=== PATIENT | female | born 2000 ===

== ENCOUNTER 2022-09-28 13:13 | Outpatient (CLI) | payer MEDICAID, SELFPAY | END 2022-09-28 13:14 | disposition home or self-care (01) | PROVIDERS: PCP Family Medicine; Visit Provider Family Medicine | DX: Z01.419 Encounter for gynecological examination (general) (routine) without abnormal findings (principal); Z13.1 Encounter for screening for diabetes mellitus; Z13.6 Encounter for screening for cardiovascular disorders; Z11.3 Encounter for screening for infections with a predominantly sexual mode of transmission | CPT/HCPCS: 80061; 82947; 87491; 87591 ==

== ENCOUNTER 2022-10-13 08:59 | Outpatient (CLI) | payer MEDICAID, SELFPAY ==
[2022-10-13 12:39] LABS: Chlamydia DNA Amplified* NOT DETECTED (No Detected); GC DNA Amplified* NOT DETECTED (No Detected)
== END 2022-10-13 09:00 | disposition home or self-care (01) ==
PROVIDERS: PCP Family Medicine; Visit Provider Physician Assistant
DX: Z11.3 Encounter for screening for infections with a predominantly sexual mode of transmission (principal)
CPT/HCPCS: 87491; 87591

== ENCOUNTER 2023-02-13 13:22 | Emergency (ER) | payer MEDICAID, SELFPAY ==
[2023-02-13 13:44] VITALS: BP 108/71; PULSE 91; RESP 16; TEMP 36.4; O2SAT 98; BMI 25.0
--- NOTE | 2023-02-13 14:30 | ED_ITS ---
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 She has tried some magnesium and Tylenol without relief. She does have a history of migraine headaches and usually they will respond to this. She last tried Tylenol at 2:00 a.m. today. She has had no fevers, no trauma. She feels the headache throughout her whole head, goes into the back of her head goes to the front of her head up by her nose and behind her eyes. She has felt nausea with it but has had no vomiting. No abdominal pain. No other respiratory illnesses with this, specifically no sore throat or otalgia or nasal congestion or cough. She feels like her head is pounding. This is a more severe migraine headache for her. She really has not eaten much today due to the headache and the nausea from it. She has an IUD in place, knows it is good for 10 years, likely ParaGard but will confirm in her records. elicited complaint: headache and migraine Related Data Home Medications Medication Instructions Recorded Confirmed iron 02/13/23 Allergies Allergy/AdvReac Type Severity Reaction Status Date / Time No Known Allergies Allergy Unverified 10/13/22 07:46 Review of Systems Status of ROS: Reports: 6 or more systems reviewed and unremarkable except as noted in History and below [facility] Medical History Severe anxiety (03/2021) ?F41.9 - Anxiety disorder, unspecified (ICD-10) Posttraumatic stress disorder ?F43.10 - Post-traumatic stress disorder, unspecified (ICD-10) depression (06/2021) ?F53.0 - depression (ICD-10) Major depressive disorder ?F32.9 - Major depressive disorder, single episode, unspecified (ICD-10) Generalized anxiety disorder with panic attacks ?F41.1 - Generalized anxiety disorder (ICD-10) ?F41.0 - Panic disorder [episodic paroxysmal anxiety] (ICD-10) Surgical History History of appendectomy (06/2022) ?Z90.49 - Acquired absence of other specified parts of digestive tract (ICD- 10) Normal spontaneous vaginal delivery (06/08/21) ?O80 - Encounter for full-term uncomplicated delivery (ICD-10) Family History Maternal Grandfather Diabetes Aunt Diabetes Mother Fatty liver disease, nonalcoholic Social History Narrative: Single, has significant other, , 1 child Nonsmoker Does not drink alcohol Exercise 2-3 times per week : walking Smoking Status: Never smoker Little interest or pleasure in doing things: several days Feeling down, depressed, or hopeless: several days Exam Const: Vital Signs, click to edit/add: Vital Signs - 24 hr 02/13/23 13:44 Temperature 97.5 F L Pulse Rate [Pulse Oximeter] 91 Respiratory Rate 16 Blood Pressure [Ri ght Upper Arm] 108/71 Pulse Oximetry 98 Oxygen Delivery Me thod Room Air Very pleasant 22-year-old female that is alert interactive no apparent distress. Speech is normal. Able to speak in complete sentences. Pupils equal round reactive, sclerae are clear. TMs canals normal. Symmetrical facial function. Oropharynx are mucosa, no exudates erythema. Neck is supple, no cervical adenopathy, no thyromegaly masses or nodules. Lungs are clear, good air entry, no wheezing or crackles. CV regular rate and rhythm no murmur, normal S1 and S2. Abdomen is soft nontender nondistended. Gait was normal and she was ambulatory into the ED of her own accord. Strength is 5 5 and symmetric no tremors noted no focal neurologic deficits noted. Documenting provider has reviewed patient's vital signs: yes Course Course Hospital Course: Discussed with patient that this certainly sounds like a migraine headache but is just more severe for her. We will place an IV, do a L of normal saline, 10 mg Reglan, 15 mg IV Toradol and 25 mg IV Benadryl. I will do CBC and basic metabolic panel just ensure no electrolytes abnormality/anemia for her. She looks quite well, nothing in her history to suggest any red flags, do not believe she needs any neuro imaging at this time. Reevaluation(s) Time of Reevaluation #1: 17:32 Reevaluation #1: Patient is feeling better from the headache, tired from the medicines which we reviewed is normal. Did review with her the anemia. She does take iron, does note heavy menstrual flow. Will have her continue on iron, try to eat iron rich foods, have her anemia followed up in clinic within the next month. Vital Signs Vital signs: Initial Vital Signs Temperature 97.5 F L 02/13/23 13:44 Temperature Source Temporal Artery Scan 02/13/23 13:44 Pulse Rate 91 02/13/23 13:44 Respiratory Rate 16 02/13/23 13:44 Blood Pressure 108/71 02/13/23 13:44 Blood Pressure Mean 83 02/13/23 13:44 Blood Pressure Position Sitting 02/13/23 13:44 Pulse Oximetry 98 02/13/23 13:44 Oxygen Delivery Method Room Air 02/13/23 13:44 Vital Signs Temperature 97.5 F L 02/13/23 13:44 Pulse Rate 91 02/13/23 13:44 Respiratory Rate 16 02/13/23 13:44 Blood Pressure 108/71 02/13/23 13:44 Pulse Oximetry 98 02/13/23 13:44 Oxygen Delivery Method Room Air 02/13/23 13:44 Temperature 97.5 F L 02/13/23 13:44 Pulse Rate 91 02/13/23 13:44 Respiratory Rate 16 02/13/23 13:44 Blood Pressure 108/71 02/13/23 13:44 Pulse Oximetry 98 02/13/23 13:44 Oxygen Delivery Method Room Air 02/13/23 13:44 MDM - Headache Lab Data Attestation: I reviewed the patient's lab results. Labs: Lab Results 02/13/23 Range/Units 15:23 WBC 5.26 (4.50-11.00) K/uL RBC 4.10 (4.00-5.20) m/uL Hgb 10.8 L (12.0-16.0) gm/dL Hct 34.3 (33.0-51.0) % MCV 84 (80-100) fL MCH 26 (26-34) pg MCHC 32 (32-36) gm/dL RDW Coeff of Lon 13.4 (11.5-15.5) % Plt Count 277 (140-440) K/uL Neut % (Auto) 52.7 (42.0-72.0) % Lymph % (Auto) 35.9 (20-44) % [place] % (Auto) 10.8 (0.0-11.0) % Eos % (Auto) 0.2 (0.0-7.0) % Baso % (Auto) 0.2 (0.0-3.0) % Neut # (Auto) 2.77 (1.7-7.0) K/uL Lymph # (Auto) 1.89 (0.90-2.90) K/uL [place] # (Auto) 0.60 (0.00-0.90) K/UL Eos # (Auto) 0.01 (0.00-0.50) K/uL Baso # (Auto) 0.01 (0.00-0.30) K/uL Abs Immat Gran (auto) 0.01 (0.00-0.30) K/uL Imm/Tot Granulo (auto) 0.2 % Sodium 139 (135-149) mmol/L Potassium 3.5 L (3.6-5.1) mmol/L Chloride 105 (96-114) mmol/L Carbon Dioxide 23 (20-32) mmol/L Anion Gap 11 (7-15) mEq/L BUN 13 (5-24) mg/dL Creatinine 0.6 (0.5-1.5) mg/dL Estimated Creat Clear 122.69 Estimated GFR 131 ml/min Glucose 87 (60-115) mg/dL Calcium 9.1 (8.4-10.6) mg/dL Critical Care Time Critical Care Time Critical Care Time: No Discharge Plan Discharge Clinical Impression: Migraine, Anemia Patient Disposition: Home, Self-Care Condition: Stable Instructions: Migraine Headache (ED), Iron Rich Diet (ED), Anemia (ED) Additional Instructions: Need you to go home and rest, recommend taking a 1000 mg of Tylenol tonight before bed. You need did drink plenty of fluids help stay hydrated, this can help decrease migraine headaches. Do recommend staying on the iron supplement, follow up in clinic within the next month for recheck of your anemia. Review handout in try to eat iron rich foods as well. The ParaGard IUD can increase menstrual blood flow contributing to anemia. Can talk to your primary care provider about this further if you have ongoing issues with anemia. Activity Level: Activity as Tolerated Prescriptions: No Action iron Follow Up/Referrals: Summer Bogres MD [Primary Care Provider] - Stand Alone Forms: [employer] Info Instructions
[2023-02-13] MEDS: diphenhydrAMINE 50 MG/ML inj 25 MG IVP (15:24)
[2023-02-13] MEDS: METOCLOPRAMIDE HCL 10 MG in 0.9 % SODIUM CHLORIDE 100 ml 100 ML 306 MG IVPB (15:24)
[2023-02-13] MEDS: 0.9 % SODIUM CHLORIDE 1000 ml 1,000 ML IV (15:24)
[2023-02-13] MEDS: KETOROLAC 15 MG/ML inj IVP (15:24)
[2023-02-13 15:29] LABS: Basophils Absolute Auto 0.01 K/uL (0.00-0.30); Basophils Percent Auto 0.2 % (0.0-3.0); Eosinophils Absolute Auto 0.01 K/uL (0.00-0.50); Eosinophils Percent Auto 0.2 % (0.0-7.0); Hematocrit 34.3 % (33.0-51.0); Hemoglobin* 10.8 gm/dL (12.0-16.0); Immature Granulocytes Abs Auto 0.01 K/uL (0.00-0.30); Immature Granulocytes Pct Auto 0.2 %; Lymphocytes Absolute Auto 1.89 K/uL (0.90-2.90); Lymphocytes Percent Auto 35.9 % (20-44); Mean Corpuscular HGB Conc 32 gm/dL (32-36); Mean Corpuscular Hemoglobin 26 pg (26-34); Mean Corpuscular Volume 84 fL (80-100); Monocytes Percent Auto 10.8 % (0.0-11.0); Neutrophils Absolute Auto 2.77 K/uL (1.7-7.0); Neutrophils Percent Auto 52.7 % (42.0-72.0); Platelet Count* 277 K/uL (140-440); RDW Coefficient of Variation % 13.4 % (11.5-15.5); White Blood Count* 5.26 K/uL (4.50-11.00)
[2023-02-13 15:32] LABS: Slide Review Reflex No
[2023-02-13 15:41] LABS: Chloride* 105 mmol/L (96-114); Potassium* 3.5 mmol/L (3.6-5.1); Sodium* 139 mmol/L (135-149)
[2023-02-13 15:43] LABS: Creatinine* 0.6 mg/dL (0.5-1.5); Est. Creatinine Clearance* 122.69; Estimated Glomerular Filt Rate 131 ml/min
[2023-02-13 15:44] LABS: Anion Gap 11 mEq/L (7-15); Blood Urea Nitrogen* 13 mg/dL (5-24); Calcium* 9.1 mg/dL (8.4-10.6); Carbon Dioxide* 23 mmol/L (20-32); Glucose* 87 mg/dL (60-115)
== END 2023-02-13 17:50 | disposition home or self-care (01) ==
PROVIDERS: Emergency Provider Family Medicine; PCP Family Medicine
DX: G43.909 Migraine, unspecified, not intractable, without status migrainosus (principal); D64.9 Anemia, unspecified
CPT/HCPCS: 36415; 80048; 85025; 96365; 96375; 99284; J1200; J1885; J2765; J7030

== ENCOUNTER 2023-02-15 18:16 | Emergency (ER) | payer MEDICAID, SELFPAY ==
[2023-02-15 18:28] VITALS: BP 114/65; PULSE 103; RESP 16; TEMP 36.4; O2SAT 98; BMI 23.0
--- NOTE | 2023-02-15 18:55 | CRLHL7_ITS ---
For Patients: As a result of the Century Cures Act, medical imaging exams and procedure reports are released immediately into your electronic medical record. You may view this report before your referring provider. If you have questions, please contact your health care provider. INDICATION: Headache. TECHNIQUE: Noncontrast CT images acquired through the brain. COMPARISON: None. FINDINGS: The ventricles and sulci are within normal limits for patient age. No mass effect or midline shift. The fuentes-white differentiation is maintained. No acute intracranial hemorrhage or pathologic extra-axial fluid collection. The globes are symmetric. The calvarium is intact. Mild opacification of the left ethmoid air cells. The mastoid air cells are clear. IMPRESSION: No acute intracranial hemorrhage or mass effect. Please note that all CT scans at this facility use dose modulation, iterative reconstruction, and/or weight-based dosing when appropriate to reduce radiation dose to as low as reasonably achievable. Dictated by Broderick Omalley MD @ 02/15/2023 8:44:21 PM (Electronically Signed)
--- NOTE | 2023-02-15 19:08 | ED.GENADULT ---
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 She has a history of anxiety, anemia, migraines. She states she has been here 2 days ago for similar symptoms. She states she has history of migraines but they have never lasted this long she says this 1 feels worse than normal. She denies any traumatic injuries. Patient states symptoms felt better after the medications she got 2 days ago pending quickly came back when she got home. She is admitting to some lightheadedness and dizziness earlier in the day was not having any symptoms right now. Denies fevers, chills, chest pain, shortness of breath, abdominal pain, diarrhea, constipation, weakness, numbness. She does states she is concerned she could be is a some brownish vaginal discharge. This was noted 2 days ago also in the note. She does mid she has her menstrual period 2 weeks prior. Related Data Home Medications Medication Instructions Recorded Confirmed iron 02/13/23 Previous Rx's Medication Instructions Recorded ondansetron 4 mg disintegrating 4 mg PO Q6H #20 tabs 02/15/23 tablet Allergies Allergy/AdvReac Type Severity Reaction Status Date / Time No Known Allergies Allergy Unverified 10/13/22 07:46 Review of Systems Status of ROS: Reports: 10 or more systems reviewed and unremarkable except as noted in History and below PFSH PFS Medical History Severe anxiety (03/2021) ?F41.9 - Anxiety disorder, unspecified (ICD-10) Posttraumatic stress disorder ?F43.10 - Post-traumatic stress disorder, unspecified (ICD-10) depression (06/2021) ?F53.0 - depression (ICD-10) Major depressive disorder ?F32.9 - Major depressive disorder, single episode, unspecified (ICD-10) Generalized anxiety disorder with panic attacks ?F41.1 - Generalized anxiety disorder (ICD-10) ?F41.0 - Panic disorder [episodic paroxysmal anxiety] (ICD-10) Surgical History History of appendectomy (06/2022) ?Z90.49 - Acquired absence of other specified parts of digestive tract (ICD-10) Normal spontaneous vaginal delivery (06/08/21) ?O80 - Encounter for full-term uncomplicated delivery (ICD-10) Family History Maternal Grandfather Diabetes Aunt Diabetes Mother Fatty liver disease, nonalcoholic Social History Narrative: Single, has significant other, , 1 child Nonsmoker Does not drink alcohol Exercise 2-3 times per week : walking Smoking Status: Never smoker Non-prescribed substance use: denies use Little interest or pleasure in doing things: several days Feeling down, depressed, or hopeless: several days Exam Narrative: Exam Narrative: Const: Well-nourished, Well-developed, in mild distress Eyes: PERRL, no conjunctival injection, and symmetrical lids ENMT: Atraumatic external nose and ears. Moist mucous membranes. Neck: Symmetric, trachea midline, No thyromegaly. CVS: RRR, No murmurs or gallops. Peripheral pulses 2+ and equal in all extremities RESP: Unlabored respiratory effort. Clear to auscultation bilaterally. GI: Nontender/Nondistended, No rebound or guarding. MSK:Extremities w/o deformity, Normal Active ROM Skin: Warm, Dry. No rashes or lesions. Neuro: Normal Muscle tone, No focal neurological deficits. Psych: Awake, Alert, & Oriented x3. Appropriate mood and affect. Const: Vital Signs, click to edit/add: Vital Signs - 24 hr 02/15/23 18:28 Temperature 97.6 F Pulse Rate [Right Pulse Oximeter] 103 H Respiratory Rate 16 Blood Pressure [Ri ght Upper Arm] 114/65 Pulse Oximetry 98 Oxygen Delivery Me thod Room Air Course Vital Signs Vital signs: Initial Vital Signs Temperature 97.6 F 02/15/23 18:28 Temperature Source Temporal Artery Scan 02/15/23 18:28 Pulse Rate 103 H 02/15/23 18:28 Respiratory Rate 16 02/15/23 18:28 Blood Pressure 114/65 02/15/23 18:28 Blood Pressure Mean 81 02/15/23 18:28 Blood Pressure Position Sitting 02/15/23 18:28 Pulse Oximetry 98 02/15/23 18:28 Oxygen Delivery Method Room Air 02/15/23 18:28 Vital Signs Temperature 97.6 F 02/15/23 18:28 Pulse Rate 103 H 02/15/23 18:28 Respiratory Rate 16 02/15/23 18:28 Blood Pressure 114/65 02/15/23 18:28 Pulse Oximetry 98 02/15/23 18:28 Oxygen Delivery Method Room Air 02/15/23 18:28 Temperature 97.6 F 02/15/23 18:28 Pulse Rate 103 H 02/15/23 18:28 Respiratory Rate 16 02/15/23 18:28 Blood Pressure 114/65 02/15/23 18:28 Pulse Oximetry 98 02/15/23 18:28 Oxygen Delivery Method Room Air 02/15/23 18:28 Medical Decision Making MDM Narrative Medical decision making narrative: Patient is a 22-year-old female presenting to the emergency department for a headache. Headache has been going on for the past for 5 days. She was seen 2 days ago for similar symptoms prefer was feeling overall at discharge for several came back question 1 home. Has had vomiting since he was discharged home is currently feeling nauseated. She states this headache is worse than her previous migraines. Considering she has come back to the same symptoms and states that this worse than previous ones we will order head CT. She will also be given a migraine cocktail. After the migraine cocktail she says his symptoms improved. She still has a headache but is not as bad. Her head CT is pending at this time. Patient signed out to Dr. gomez at the end of my Shift. Lab Data Labs: Lab Results 02/15/23 Range/Units 19:15 HCG, Qual Negative (Negative) Discharge Plan Discharge Clinical Impression: Migraine Qualifiers: Migraine type: unspecified Status migrainosus presence: without status migrainosus Intractability: not intractable Qualified Code(s): G43.909 - Migraine, unspecified, not intractable, without status migrainosus Patient Disposition: Home, Self-Care Condition: Stable Instructions: Migraine Headache (ED) Additional Instructions: Follow-up to primary care provider. Take ibuprofen and Tylenol for pain. Return for new or worsening symptoms. Soon she started getting nauseated take Zofran. Prescriptions: New ondansetron 4 mg tablet,disintegrating 4 mg PO Q6H Qty: 20 0RF No Action iron Follow Up/Referrals: Summer Borges MD [Primary Care Provider] - Stand Alone Forms: [email or web address] Info Instructions
[2023-02-15] MEDS: METOCLOPRAMIDE HCL 5 MG/ML INJ 10 MG IVP (19:23)
[2023-02-15] MEDS: LACTATED RINGERS 1000 ML 1,000 ML IV (19:23)
[2023-02-15] MEDS: KETOROLAC 15 MG/ML inj IVP (19:23)
[2023-02-15] MEDS: diphenhydrAMINE 50 MG/ML inj 25 MG IVP (19:23)
[2023-02-15 19:55] LABS: HCG Qualitative Serum* Negative (Negative)
[2023-02-15] MEDS: ACETAMINOPHEN 500 MG TABLET 1000 MG PO (20:44)
== END 2023-02-15 21:04 | disposition home or self-care (01) ==
PROVIDERS: Emergency Provider Student in an Organized Health Care Education/Training Program; PCP Family Medicine
DX: G43.909 Migraine, unspecified, not intractable, without status migrainosus (principal)
CPT/HCPCS: 36415; 70450; 84703; 96374; 96375; 99283; 99284; A9270; J1200; J1885; J2765; J7120

== ENCOUNTER 2023-07-25 11:33 | Emergency (ER) | payer MEDICAID, SELFPAY ==
[2023-07-25 12:27] VITALS: BP 101/62; PULSE 83; RESP 18; TEMP 37.2; O2SAT 98
[2023-07-25 13:04] LABS: Appearance Urine Clear (Clear); Bilirubin Urine Negative (Negative); Blood Urine 2+ (Negative); Color Urine Yellow (Yellow); Glucose Urine Negative (Negative); Ketones Urine Negative (Negative); Leukocyte Esterase Urine Trace (Negative); Nitrite Urine Negative (Negative); Protein Urine Negative (Negative); Urobilinogen Urine 0.2 (0.2-1.0)
[2023-07-25 13:48] VITALS: BP 107/77; PULSE 82; RESP 16; O2SAT 100
[2023-07-25 14:01] LABS: Bacteria Urine Few; Squamous Epithelial Cell Urine Few (None-Few); WBC Urine 0-2 (0-5)
[2023-07-25 15:05] LABS: Ur HCG Qualitative* Negative (Negative)
--- NOTE | 2023-07-25 15:11 | ED_ITS ---
HPI - Female Genitourinary General Date Seen: 07/25/23 Chief complaint: Urogenital Problems, Female Stated complaint: Skin-like vaginal secretions Time Seen by Provider: 07/25/23 14:20 Source: patient Mode of arrival: ambulatory Limitations: no limitations History of Present Illness HPI Narrative: Patient is a 22-year-old female presenting to the emergency department for dysuria and some discharge. She states she has nose dysuria for the past 1 or 2 days was states every time she urinates some clumps discharge will come out. She is also having some mild pelvic pain that she says feels like period cramps. States her menstrual period was 2-3 weeks ago. States she is sexually active and has an IUD for contraception. Has not been using condoms. Has not noticed the discharge other than when she urinates. Denies fevers, chills, nausea/vomiting, diarrhea, constipation. No other concerns noted at this time Related Data Home Medications Medication Instructions Recorded Confirmed iron 02/13/23 Previous Rx's Medication Instructions Recorded ondansetron 4 mg disintegrating 4 mg PO Q6H #20 tabs 02/15/23 tablet cephalexin 250 mg capsule 250 mg PO QID #20 caps 07/25/23 Allergies Allergy/AdvReac Type Severity Reaction Status Date / Time No Known Allergies Allergy Unverified 10/13/22 07:46 Review of Systems Status of ROS: Reports: 6 or more systems reviewed and unremarkable except as noted in History and below PFSH PFS Medical History Severe anxiety (03/2021) ?F41.9 - Anxiety disorder, unspecified (ICD-10) Posttraumatic stress disorder ?F43.10 - Post-traumatic stress disorder, unspecified (ICD-10) depression (06/2021) ?F53.0 - depression (ICD-10) Major depressive disorder ?F32.9 - Major depressive disorder, single episode, unspecified (ICD-10) Generalized anxiety disorder with panic attacks ?F41.1 - Generalized anxiety disorder (ICD-10) ?F41.0 - Panic disorder [episodic paroxysmal anxiety] (ICD-10) Surgical History History of appendectomy (06/2022) ?Z90.49 - Acquired absence of other specified parts of digestive tract (ICD- 10) Normal spontaneous vaginal delivery (06/08/21) ?O80 - Encounter for full-term uncomplicated delivery (ICD-10) Family History Maternal Grandfather Diabetes Aunt Diabetes Mother Fatty liver disease, nonalcoholic Social History Narrative: Single, has significant other, , 1 child Nonsmoker Does not drink alcohol Exercise 2-3 times per week : walking Smoking Status: Never smoker Non-prescribed substance use: denies use Little interest or pleasure in doing things: several days Feeling down, depressed, or hopeless: several days Exam Narrative: Exam Narrative: Const: Well-nourished, Well-developed, in mild distress Eyes: PERRL, no conjunctival injection, and symmetrical lids HENT: Atraumatic external nose and ears. Moist mucous membranes. GI: Mild suprapubic tenderness, Nondistended, No rebound or guarding. MSK:Extremities w/o deformity, Normal Active ROM Skin: Warm, Dry. No rashes or lesions. Neuro: Normal Muscle tone, No focal neurological deficits. Psych: Awake, Alert, & Oriented x3. Appropriate mood and affect. Const: Vital Signs, click to edit/add: Vital Signs - 24 hr 07/25/23 12:27 07/25/23 13:48 Temperature 98.9 F Pulse Rate [Pulse Oximeter] 83 82 Respiratory Rate 18 16 Blood Pressure [Ri ght Upper Arm] 101/62 107/77 Pulse Oximetry 98 100 Oxygen Delivery Me thod Room Air Room Air Course Vital Signs Vital signs: Initial Vital Signs Temperature 98.9 F 07/25/23 12:27 Temperature Source Temporal Artery Scan 07/25/23 12:27 Pulse Rate 83 07/25/23 12:27 Respiratory Rate 18 07/25/23 12:27 Blood Pressure 101/62 07/25/23 12:27 Blood Pressure Mean 75 07/25/23 12:27 Blood Pressure Position Sitting 07/25/23 12:27 Pulse Oximetry 98 07/25/23 12:27 Oxygen Delivery Method Room Air 07/25/23 12:27 Vital Signs Temperature 98.9 F 07/25/23 12:27 Pulse Rate 83 07/25/23 12:27 Respiratory Rate 18 07/25/23 12:27 Blood Pressure 101/62 07/25/23 12:27 Pulse Oximetry 98 07/25/23 12:27 Oxygen Delivery Method Room Air 07/25/23 12:27 Temperature 98.9 F 07/25/23 12:27 Pulse Rate 82 07/25/23 13:48 Respiratory Rate 16 07/25/23 13:48 Blood Pressure 107/77 07/25/23 13:48 Pulse Oximetry 100 07/25/23 13:48 Oxygen Delivery Method Room Air 07/25/23 13:48 MDM - Female Genitourinary MDM Narrative Medical decision making narrative: Patient is a 22-year-old female presenting for dysuria and vaginal discharge. Discharged only comes when she urinates. She is not using barrier protection and I do have some concern for STD. Gonorrhea chlamydia test ordered. Urinalysis ordered. Also were test. She is otherwise doing well stable vital signs and not believe imaging is necessary at this time. Urinalysis shows a mild UTI but considering her symptoms I will treated. She is not . Chlamydia and gonorrhea are negative. She will be discharged home antibiotics and she is agreeable to this plan Lab Data Labs: Lab Results 07/25/23 07/25/23 Range/Units 12:42 12:44 Urine Color Yellow (Yellow) Urine Appearance Clear (Clear) Urine pH 6.0 (5.0-8.5) Ur Specific [place] 1.020 (1.000-1.030) Urine Protein Negative (Negative) Urine Glucose (UA) Negative (Negative) Urine Ketones Negative (Negative) Urine Blood 2+ A (Negative) Urine Nitrite Negative (Negative) Urine Bilirubin Negative (Negative) Urine Urobilinogen 0.2 (0.2-1.0) Ur Leukocyte Esterase Trace A (Negative) Urine RBC 2-5 A (0-2) Urine WBC 0-2 (0-5) Ur Squamous Epith Cells Few (None-Few) Urine Bacteria Few A (None) Urine HCG, Qual Negative (Negative) C.trachomatis Ampl DNA Not Detected (No Detected) N.gonorrhoeae Ampl DNA Not Detected (No Detected) Discharge Plan Discharge Clinical Impression: Urinary tract infection Qualifiers: Urinary tract infection type: site unspecified Hematuria presence: without hematuria Qualified Code(s): N39.0 - Urinary tract infection, site not specified Patient Disposition: Home, Self-Care Condition: Stable Instructions: Urinary Tract Infection in Women (DC) Additional Instructions: Take the antibiotics as directed. Return to emergency department for new or worsening symptoms Prescriptions: New cephalexin 250 mg capsule 250 mg PO QID Qty: 20 0RF No Action ondansetron 4 mg tablet,disintegrating 4 mg PO Q6H Qty: 20 0RF iron Follow Up/Referrals: Summer Borges MD [Primary Care Provider] - Stand Alone Forms: [employer] Info Instructions
[2023-07-25 16:39] LABS: Chlamydia DNA Amplified* Not Detected (No Detected); GC DNA Amplified* Not Detected (No Detected)
== END 2023-07-25 17:20 | disposition home or self-care (01) ==
PROVIDERS: Emergency Provider Student in an Organized Health Care Education/Training Program; PCP Family Medicine
DX: N39.0 Urinary tract infection, site not specified (principal)
CPT/HCPCS: 81001; 81025; 87086; 87491; 87591; 99282; 99283

== ENCOUNTER 2024-03-13 14:33 | Outpatient (CLI) | payer OTHER, SELFPAY ==
[2024-03-13 23:41] LABS: Chlamydia DNA Amplified* NOT DETECTED (No Detected); GC DNA Amplified* NOT DETECTED (No Detected)
== END 2024-03-13 14:34 | disposition home or self-care (01) ==
LOC: NFLDUCREF 14:33
PROVIDERS: PCP Family Medicine; Visit Provider Nurse Practitioner
DX: N89.8 Other specified noninflammatory disorders of vagina (principal)
CPT/HCPCS: 87491; 87591

== ENCOUNTER 2024-07-03 15:21 | Outpatient (CLI) | payer OTHER, SELFPAY ==
[2024-07-03 21:06] LABS: Chlamydia DNA Amplified* NOT DETECTED (No Detected); GC DNA Amplified* NOT DETECTED (No Detected)
== END 2024-07-03 15:22 | disposition home or self-care (01) ==
PROVIDERS: PCP Family Medicine; Visit Provider Registered Nurse
DX: Z34.91 Encounter for supervision of normal pregnancy, unspecified, first trimester (principal); O20.9 Hemorrhage in early pregnancy, unspecified; O34.11 Maternal care for benign tumor of corpus uteri, first trimester; D25.2 Subserosal leiomyoma of uterus; Z3A.09 9 weeks gestation of pregnancy
CPT/HCPCS: 76817; 82728; 83020; 83021; 83540; 83550; 85660; 86592; 86703; 86704; 86706; 86762; 86787; 86803; 86850; 86900; 86901; 87086; 87340; 87491; 87591; T1013

== ENCOUNTER 2024-07-16 12:24 | Outpatient (CLI) | payer OTHER, MEDICAID, SELFPAY ==
[2024-07-16 14:57] LABS: Bacterial Vaginosis* Negative (Negative); Candida glab/krus NOT DETECTED (No Detected); Candida species NOT DETECTED (No Detected); Trichomonas vaginalis NOT DETECTED (No Detected)
== END 2024-07-16 12:25 | disposition home or self-care (01) ==
LOC: NFLDREF 12:24
PROVIDERS: PCP Family Medicine; Visit Provider Registered Nurse
DX: N89.8 Other specified noninflammatory disorders of vagina (principal)
CPT/HCPCS: 81513; 87481; 87661

== ENCOUNTER 2024-07-19 14:10 | Emergency (ER) | payer OTHER, MEDICAID, SELFPAY ==
[2024-07-19 14:40] VITALS: BP 95/56; PULSE 68; RESP 18; TEMP 36.9; O2SAT 99; BMI 23.7
--- NOTE | 2024-07-19 15:00 | ED.HA ---
HPI - Headache General Chief Complaint: Headache/Migraine Stated Complaint: 3 day headache, 11 weeks Time Seen by Provider: 07/19/24 14:50 History of Present Illness HPI Narrative: This 23-year-old female comes in reporting headache which started about 3 days ago. She states that she does have a history of headaches but this 1 is more persistent. Symptoms are similar in that it includes nausea with vomiting. She reports that she is 11 weeks . Related Data Home Medications ?Medication ?Instructions ?Recorded ?Confirmed docosahexaenoic acid 200 mg mg PO 07/03/24 07/16/24 capsule ( DHA) magnesium citrate 125 mg capsule 250 mg PO QDAY 07/03/24 07/16/24 Previous Rx's ?Medication ?Instructions ?Recorded ferrous sulfate 325 mg (65 mg 325 mg PO Q OTHER DAY #90 tabs 07/04/24 iron) tablet ondansetron 4 mg disintegrating 4 mg PO Q6-8H PRN nausea and 07/16/24 tablet vomiting #30 tabs Allergies Allergy/AdvReac Type Severity Reaction Status Date / Time No Known Allergies Allergy Verified 07/16/24 10:41 Review of Systems Status of ROS: Reports: 10 or more systems reviewed and unremarkable except as noted in History and below Narrative: Constitutional: No fevers, no weight gain or loss. Eyes: No discharge. No vision changes. HENT: No congestion, no sore throat, no ear pain. Cardiovascular: No chest pain, no palpitations. Respiratory: No shortness of breath, no wheezes, no cough. Gastrointestinal: No abdominal pain, no vomiting, no diarrhea. Genitourinary: No dysuria, no hematuria. Musculoskeletal: Normal range of motion. Skin: No rashes, no pruritis. Neurological: No dizziness, weakness, sensory change, speech change. Endo/Heme/Allergies: No bruising or bleeding. No polydipsia. Pysch: no suicidality, no anxiety, no insomnia. All other systems reviewed and are negative. [facility] Medical History (Updated 07/19/24 @ 15:02 by Alin Mccall MD) Iron deficiency anemia ?D50.9 - Iron deficiency anemia, unspecified (ICD-10) Encounter for IUD removal ?Z30.432 - Encounter for removal of intrauterine contraceptive device (ICD-10) Severe anxiety (03/2021) ?F41.9 - Anxiety disorder, unspecified (ICD-10) Posttraumatic stress disorder ?F43.10 - Post-traumatic stress disorder, unspecified (ICD-10) depression (06/2021) ?F53.0 - depression (ICD-10) Major depressive disorder ?F32.9 - Major depressive disorder, single episode, unspecified (ICD-10) Generalized anxiety disorder with panic attacks ?F41.1 - Generalized anxiety disorder (ICD-10) ?F41.0 - Panic disorder [episodic paroxysmal anxiety] (ICD-10) Surgical History History of appendectomy (06/2022) ?Z90.49 - Acquired absence of other specified parts of digestive tract (ICD-10) Normal spontaneous vaginal delivery (06/08/21) ?O80 - Encounter for full-term uncomplicated delivery (ICD-10) Family History Maternal Grandfather Diabetes Aunt Diabetes Mother Fatty liver disease, nonalcoholic Social History (Updated 07/03/24 @ 14:30 by Odalys Solano MA) Narrative: Single, has significant other, , 1 child Nonsmoker Does not drink alcohol Exercise 2-3 times per week : walking What is your current living situation?: I presently have a place to live Problems where you live: no known problems In the past 12 months, utilities in danger of being shut off: no In past 12 months, lack of transportation kept you from medical appts, meetings, work, or getting things needed for daily living: no In the past 12 mos, have been you worried that your food would run out before you had money to buy more?: never true In the past 12 mos, the food you bought just didn't last and you didn't have money to buy more?: never true Smoking Status: Never smoker How often do you have a drink containing alcohol: never AUDIT-C Alcohol total score: 0 Non-prescribed substance use: denies use How often does anyone, including family, friends and others, physically hurt you: never How often does anyone, including family, friends and others, insult or talk down to you: never How often does anyone, including family, friends and others, threaten you with harm: never How often does anyone, including family, friends and others, scream or curse at you: never Exam Narrative: Exam Narrative: Constitutional: Well-developed, well-nourished, no acute distress. HEENT: Normocephalic, atraumatic. Neck: Normal range of motion. Nontender. Supple. Heart: Regular. No murmurs. Normal rate. Intact distal pulses. Lungs: Clear to auscultation. No chest discomfort. No wheezes, rhonchi, or rales. Abdomen: Normal bowel sounds. Nontender. No rebound tenderness. Genitalia: Deferred. Back: No midline tenderness. Normal range of motion. Extremities: Normal range of motion. No injury. Skin: Intact. No rash. Warm. No erythema or pallor. Neurologic: No altered sensation. No weakness. Alert and oriented. Psychiatric: No suicidality. No anxiety or depression. No insomnia. Nursing notes and vitals signs are reviewed. Const: Vital Signs, click to edit/add: Vital Signs - 24 hr 07/19/24 14:40 Temperature 98.5 F Pulse Rate [Pulse Oximeter] 68 Respiratory Rate 18 Blood Pressure [Ri ght Upper Arm] 95/56 L Pulse Oximetry 99 Oxygen Delivery Me thod Room Air Course Vital Signs Vital signs: Initial Vital Signs Temperature 98.5 F 07/19/24 14:40 Temperature Source Temporal Artery Scan 07/19/24 14:40 Pulse Rate 68 07/19/24 14:40 Respiratory Rate 18 07/19/24 14:40 Blood Pressure 95/56 L 07/19/24 14:40 Blood Pressure Mean 69 L 07/19/24 14:40 Pulse Oximetry 99 07/19/24 14:40 Oxygen Delivery Method Room Air 07/19/24 14:40 Vital Signs Temperature 98.5 F 07/19/24 14:40 Pulse Rate 68 07/19/24 14:40 Respiratory Rate 18 07/19/24 14:40 Blood Pressure 95/56 L 07/19/24 14:40 Pulse Oximetry 99 07/19/24 14:40 Oxygen Delivery Method Room Air 07/19/24 14:40 Temperature 98.5 F 07/19/24 14:40 Pulse Rate 68 07/19/24 14:40 Respiratory Rate 18 07/19/24 14:40 Blood Pressure 95/56 L 07/19/24 14:40 Pulse Oximetry 99 07/19/24 14:40 Oxygen Delivery Method Room Air 07/19/24 14:40 Medications Administered Medications: Discontinued Medications Generic Name Dose Route Start Last Admin Trade Name Pankaj PRN Reason Stop Dose Admin Diphenhydramine HCl 25 mg 07/19/24 14:59 07/19/24 15:20 Diphenhydramine 50 Mg/Ml Inj IVP 07/19/24 15:00 25 mg ONCE ONE Administration Ketorolac Tromethamine 15 mg 07/19/24 14:59 07/19/24 15:26 Ketorolac 30 Mg/Ml Inj IVP 07/19/24 15:00 15 mg ONCE ONE Administration Ondansetron HCl 4 mg 07/19/24 14:59 07/19/24 15:22 Ondansetron 2 Mg/Ml Inj IVP 07/19/24 15:00 4 mg ONCE ONE Administration MDM - Headache MDM Narrative Medical decision making narrative: This patient is 11 weeks and comes in with migraine headache symptoms that are not adequately managed at home. An IV was established where she did receive Toradol 15 mg, Benadryl 25 mg, and Zofran 4 mg. This brought sufficient relief to her symptoms. She feels okay to return home. Discharge Plan Discharge Clinical Impression: Migraine Patient Disposition: Home, Self-Care Condition: Improved Additional Instructions: Use [id number] medicines as needed and directed. Follow up with MD as scheduled and needed. Return if worsening. Prescriptions: No Action DHA 200 mg capsule PO magnesium citrate 125 mg capsule 250 mg PO QDAY ondansetron 4 mg tablet,disintegrating 4 mg PO Q6-8H PRN (Reason: nausea and vomiting) Qty: 30 1RF ferrous sulfate 325 mg (65 mg iron) tablet 325 mg PO Q OTHER DAY Qty: 90 1RF Follow Up/Referrals: Summer Borges MD [Staff Physician] - Stand Alone Forms: [place] [employer] Info Instructions
[2024-07-19] MEDS: diphenhydrAMINE 50 MG/ML inj 25 MG IVP (15:20)
[2024-07-19] MEDS: ONDANSETRON 2 MG/ML inj 4 MG IVP (15:22)
[2024-07-19] MEDS: KETOROLAC 30 MG/ML inj 15 MG IVP (15:26)
[2024-07-19 16:23] VITALS: BP 96/61; PULSE 62; RESP 14
== END 2024-07-19 16:24 | disposition home or self-care (01) ==
PROVIDERS: Emergency Provider Emergency Medicine Emergency Medical Services
DX: G43.909 Migraine, unspecified, not intractable, without status migrainosus (principal); Z3A.11 11 weeks gestation of pregnancy
CPT/HCPCS: 96374; 96375; 99283; 99284; T1013; J1200; J1885; J2405

== ENCOUNTER 2024-07-28 17:07 | Emergency (ER) | payer OTHER, MEDICAID, SELFPAY ==
[2024-07-28 17:49] VITALS: BP 111/68; PULSE 67; RESP 16; TEMP 36.4; O2SAT 100; BMI 24.2
[2024-07-28] MEDS: OXYCODONE 5 MG TABLET PO (19:06)
--- NOTE | 2024-07-28 19:08 | ED.GENADULT ---
HPI - General Adult General Date Seen: 07/28/24 Chief complaint: Dental/Oral/Mouth Injury/Pain Stated complaint: Potential Molar infection (right side) Time Seen by Provider: 07/28/24 18:40 History of Present Illness HPI narrative: Patient is a 23-year-old young woman, primarily Arabic-speaking although she speaks a fair amount of Mongolian. We did use an cheese cutter for the history. She notes pain in the right molar, lower, ongoing for few days now but it is worse tonight. She actually has a dentist appointment tomorrow but says that it was too painful. She feels like there is some swelling on that side of her face and she has pain that radiates into her jaw and ear. No fevers. She is 12 weeks . Related Data Home Medications ?Medication ?Instructions ?Recorded ?Confirmed docosahexaenoic acid 200 mg mg PO 07/03/24 07/25/24 capsule ( DHA) magnesium citrate 125 mg capsule 250 mg PO QDAY 07/03/24 07/28/24 Previous Rx's ?Medication ?Instructions ?Recorded ferrous sulfate 325 mg (65 mg 325 mg PO Q OTHER DAY #90 tabs 07/04/24 iron) tablet ondansetron 4 mg disintegrating 4 mg PO Q6-8H PRN nausea and 07/16/24 tablet vomiting #30 tabs Allergies Allergy/AdvReac Type Severity Reaction Status Date / Time No Known Allergies Allergy Verified 07/28/24 17:59 Review of Systems Status of ROS: Reports: 6 or more systems reviewed and unremarkable except as noted in History and below [facility] Medical History (Updated 07/28/24 @ 19:01 by Kelly Santana MD) Iron deficiency anemia ?D50.9 - Iron deficiency anemia, unspecified (ICD-10) Encounter for IUD removal ?Z30.432 - Encounter for removal of intrauterine contraceptive device (ICD-10) Severe anxiety (03/2021) ?F41.9 - Anxiety disorder, unspecified (ICD-10) Posttraumatic stress disorder ?F43.10 - Post-traumatic stress disorder, unspecified (ICD-10) depression (06/2021) ?F53.0 - depression (ICD-10) Major depressive disorder ?F32.9 - Major depressive disorder, single episode, unspecified (ICD-10) Generalized anxiety disorder with panic attacks ?F41.1 - Generalized anxiety disorder (ICD-10) ?F41.0 - Panic disorder [episodic paroxysmal anxiety] (ICD-10) Surgical History History of appendectomy (06/2022) ?Z90.49 - Acquired absence of other specified parts of digestive tract (ICD-10) Normal spontaneous vaginal delivery (06/08/21) ?O80 - Encounter for full-term uncomplicated delivery (ICD-10) Family History Maternal Grandfather Diabetes Aunt Diabetes Mother Fatty liver disease, nonalcoholic Social History (Updated 07/03/24 @ 14:30 by Odalys Solano MA) Narrative: Single, has significant other, , 1 child Nonsmoker Does not drink alcohol Exercise 2-3 times per week : walking What is your current living situation?: I presently have a place to live Problems where you live: no known problems In the past 12 months, utilities in danger of being shut off: no In past 12 months, lack of transportation kept you from medical appts, meetings, work, or getting things needed for daily living: no In the past 12 mos, have been you worried that your food would run out before you had money to buy more?: never true In the past 12 mos, the food you bought just didn't last and you didn't have money to buy more?: never true Smoking Status: Never smoker How often do you have a drink containing alcohol: never AUDIT-C Alcohol total score: 0 Non-prescribed substance use: denies use How often does anyone, including family, friends and others, physically hurt you: never How often does anyone, including family, friends and others, insult or talk down to you: never How often does anyone, including family, friends and others, threaten you with harm: never How often does anyone, including family, friends and others, scream or curse at you: never Exam Narrative: Exam Narrative: Vital signs reviewed. She is afebrile. In general, alert, nontoxic young woman. She looks comfortable. Breathing easily. Eyes: Sclera clear. ENT: I do not see any facial swelling. No erythema or induration. No dental abscess identified. TMs normal. In neck: Supple without adenopathy. Const: Vital Signs, click to edit/add: Vital Signs - 24 hr 07/28/24 17:49 Temperature 97.5 F L Pulse Rate [Pulse Oximeter] 67 Respiratory Rate 16 Blood Pressure [Ri ght Upper Arm] 111/68 Pulse Oximetry 100 Oxygen Delivery Me thod Room Air Course Course ED Course: I do not see evidence of significant cellulitis or other infectious process involving the face or neck. I gave her a single oxycodone here, I have sent her home with a prescription for amoxicillin and stressed the importance of dental follow-up tomorrow. Return any time for worsening, if she does develop significant facial swelling or redness, fevers etcetera. Vital Signs Vital signs: Initial Vital Signs Temperature 97.5 F L 07/28/24 17:49 Temperature Source Temporal Artery Scan 07/28/24 17:49 Pulse Rate 67 07/28/24 17:49 Respiratory Rate 16 07/28/24 17:49 Blood Pressure 111/68 07/28/24 17:49 Blood Pressure Mean 82 07/28/24 17:49 Blood Pressure Position Sitting 07/28/24 17:49 Pulse Oximetry 100 07/28/24 17:49 Oxygen Delivery Method Room Air 07/28/24 17:49 Vital Signs Temperature 97.5 F L 07/28/24 17:49 Pulse Rate 67 07/28/24 17:49 Respiratory Rate 16 07/28/24 17:49 Blood Pressure 111/68 07/28/24 17:49 Pulse Oximetry 100 07/28/24 17:49 Oxygen Delivery Method Room Air 07/28/24 17:49 Temperature 97.5 F L 07/28/24 17:49 Pulse Rate 67 07/28/24 17:49 Respiratory Rate 16 07/28/24 17:49 Blood Pressure 111/68 07/28/24 17:49 Pulse Oximetry 100 07/28/24 17:49 Oxygen Delivery Method Room Air 07/28/24 17:49 Medications Administered Medications: Generic Name Dose Route Start Last Admin Trade Name Freq PRN Reason Stop Dose Admin Oxycodone HCl 5 mg 07/28/24 19:00 07/28/24 19:06 Oxycodone 5 Mg Tablet PO 07/28/24 19:01 5 mg ONCE ONE Administration Discharge Plan Discharge Clinical Impression: Toothache Patient Disposition: Home, Self-Care Condition: Stable Instructions: Toothache (ED) Additional Instructions: Follow-up tomorrow with the dentist as planned. Take the amoxicillin as prescribed. Tylenol 1000 mg up to 3 times a day as needed for pain. Ice may be helpful as well. If you notice significant facial swelling or redness, fever, or other significant worsening, return any time. Ma?claudia tendr? paloma beatriz de seguimiento con el dentista seg?n lo previsto. [place] la amoxicilina seg?n lo prescrito. Tylenol 1000 mg hasta 3 veces al d?a seg?n sea necesario para el dolor. El hielo tambi?n puede ser ?til. Si nota paloma hinchaz?n o enrojecimiento facial significativo, fiebre u otro empeoramiento significativo, vuelva en cualquier momento. Prescriptions: No Action DHA 200 mg capsule PO magnesium citrate 125 mg capsule 250 mg PO QDAY ondansetron 4 mg tablet,disintegrating 4 mg PO Q6-8H PRN (Reason: nausea and vomiting) Qty: 30 1RF ferrous sulfate 325 mg (65 mg iron) tablet 325 mg PO Q OTHER DAY Qty: 90 1RF Follow Up/Referrals: Provider,Not a Local [Primary Care Provider] - Stand Alone Forms: [employer] Info Instructions
== END 2024-07-28 19:14 | disposition home or self-care (01) ==
LOC: ED 19:13
PROVIDERS: Emergency Provider Emergency Medicine
DX: K08.89 Other specified disorders of teeth and supporting structures (principal)
CPT/HCPCS: 99283; A9270

== ENCOUNTER 2024-09-19 11:25 | Outpatient (CLI) | payer MEDICAID, SELFPAY ==
--- NOTE | 2024-09-19 11:30 | CRLHL7_ITS ---
For Patients: As a result of the Century Cures Act, medical imaging exams and procedure reports are released immediately into your electronic medical record. You may view this report before your referring provider. If you have questions, please contact your health care provider. OB ULTRASOUND GREATER THAN 14 WEEKS, 09/19/2024 CLINICAL HISTORY: anatomy screen. COMPARISON: 07/03/2024. TECHNIQUE: Real time fuentes scale imaging of the fetus was performed. Evaluate anatomy. Transabdominal. FINDINGS: LMP: 05/01/2024. JEISON by LMP: 02/05/2025. GA: 20 weeks 1 day. POSITION: Vertex. PLACENTA/CORD: Placenta Position: Posterior. Technique: TA. Placenta tip to internal OS: 5.6 cm. UMBILICAL CORD: 3 vessel cord. PLACENTAL INSERTION: Central AMNIOTIC FLUID: 4.1 cm SDP. CERVIX: Visualized. Technique: TA. Length of closed cervix: 3.6 cm. OBSERVED STRUCTURES: Calvarium/Spine: Cerebellum 2.1 cm, 21 weeks 2 days. Cisterna Magna 4.0 mm. Nuchal Fold 3.3 mm Lateral ventricle 7.2 mm CSP Midline Falx Choroid Plexus Spine Abdomen: Stomach Abd Cord Insert Urinary Bladder Kidneys Diaphragm Face: Nose/lips Orbital view Profile Limbs: Upper Extremities Lower Extremities Hands Feet Vascular: 4 Ch Heart LVOT RVOT 3 VV 3VTV BIOMETRY: BPD: 5.3 cm, 22 weeks 1 day. Greater than 97% HC: 19.1 cm, 21 weeks 2 days. 88.9% AC: 16.6 cm, 21 weeks 5 days. 87.7% FL: 3.6 cm, 21 weeks 3 days. 84.8% FL/AC: 21.75% RIDER/AC: 1.15. Heart Rate: 152 bpm. Age by this US: 21 weeks 4 days. JEISON by this US: 01/26/2025. EFW: 435.02 grams, 0 lb 15 oz. Percentile by JEISON: greater than 97% IMPRESSION: Single live intrauterine gestation. No gross anomalies visualized. Gestational age of 21 weeks 4 days. JEISON 01/26/2025. Estimated weight 435 grams which lies at greater than the 97th percentile. Lenore Augustine M.D. Diagnostic/Breast Radiologist [email or web address] Transcribed: 9:00 am DW/Dictated by: Lenore Augustine MD @ 09/20/2024 5:25:00 AM (Electronically Signed)
== END 2024-09-19 11:26 | disposition home or self-care (01) ==
LOC: US 11:31
PROVIDERS: Visit Provider Advanced Practice Midwife
DX: Z34.92 Encounter for supervision of normal pregnancy, unspecified, second trimester (principal); Z3A.21 21 weeks gestation of pregnancy
CPT/HCPCS: 76805; T1013

== ENCOUNTER 2024-10-26 14:35 | Outpatient (CLI) | payer MEDICAID, SELFPAY ==
[2024-10-26] VITALS (14 sets, daily range): BP systolic 103–139; BP diastolic 61–92; PULSE 84–164; RESP 16; TEMP 37; O2SAT 98–100
[2024-10-26 15:32] LABS: Appearance Urine Slightly Cloudy (Clear); Bilirubin Urine Negative (Negative); Blood Urine Negative (Negative); Color Urine Light yellow (Yellow); Glucose Urine Negative (Negative); Ketones Urine Negative (Negative); Leukocyte Esterase Urine 1+ (Negative); Nitrite Urine Negative (Negative); Protein Urine Negative (Negative); Specific Gravity Urine 1.015 (1.000-1.030); Urobilinogen Urine 0.2 (0.2-1.0)
[2024-10-26 15:49] LABS: Amorphous Sediment Urine Many; Bacteria Urine Few; RBC Urine 0-2 (0-2); WBC Urine 0-2 (0-5)
--- NOTE | 2024-10-26 16:45 | PC.OBNST ---
NST Note NST Note Start: 10/26/24 15:04 Freq: ONCE Status: Active Protocol: Document 10/26/24 16:44 ABP (Rec: 10/26/24 16:45 ABP [id number]) NST Note 2 Para (# of births) 1 EDC 02/05/25 Gestational Age In Weeks & Days 25 Weeks & 3 Days Patient Presented with Complaint(s) of Contractions/cramping,Pain Other Complaints Abdominal pain, red tinged fluid when wiping after voiding, dysuria Reactive Yes Appropriate for Gestational Age Yes BROOKE Conley, RN Date 10/26/24 Reactive Yes Appropriate for Gestational Age Yes BROOKE Nguyen RN Date 10/26/24 OB NST charge Yes Complete NST Note via Write Note Yes The provider's electronic signature indicates the NST is reactive/appropriate for gestational age. *Note to provider: If an addendum is required, open the patient's chart and click on the note under the Nurse/Allied Health tab.
== END 2024-10-26 16:15 | disposition home or self-care (01) ==
LOC: OB OUT 14:36 → OB 14:37
PROVIDERS: Visit Provider Advanced Practice Midwife
DX: O47.02 False labor before 37 completed weeks of gestation, second trimester (principal); O26.892 Other specified pregnancy related conditions, second trimester; R10.9 Unspecified abdominal pain; R30.0 Dysuria; Z3A.25 25 weeks gestation of pregnancy
CPT/HCPCS: 59025; 81001; 81003; 87086; G0463

== ENCOUNTER 2024-11-13 10:31 | Outpatient (CLI) | payer MEDICAID, SELFPAY | END 2024-11-13 10:32 | disposition home or self-care (01) | PROVIDERS: Visit Provider Midwife | DX: Z34.93 Encounter for supervision of normal pregnancy, unspecified, third trimester (principal); Z3A.28 28 weeks gestation of pregnancy | CPT/HCPCS: 86592 ==

== ENCOUNTER 2024-11-28 09:49 | Outpatient (RCR) | payer MEDICAID, SELFPAY ==
--- NOTE | 2024-11-14 09:35 | ONC.NURNOTE ---
Diagnosis: ROSS in
[2024-11-28 09:56] VITALS: BP 108/70; PULSE 106; RESP 18; O2SAT 97
[2024-11-28] MEDS: IRON DEXTRAN COMPLEX 25 MG in 0.9 % SODIUM CHLORIDE 100 ml 100 ML 402 MG IVPB (10:35)
[2024-11-28] MEDS: SODIUM CHLORIDE 0.9 % (FLUSH) 10 ML SYRINGE IVF (10:40)
[2024-11-28 11:07] VITALS: BP 97/61; PULSE 100; RESP 16; O2SAT 100
[2024-11-28] MEDS: IRON DEXTRAN COMPLEX 975 MG in 0.9 % SODIUM CHLORIDE 250 ml 250 ML 270 MG IVPB (11:45)
[2024-11-28 12:55] VITALS: BP 100/64; PULSE 90; RESP 16; O2SAT 94
== END 2025-05-27 23:59 | disposition home or self-care (01) ==
LOC: CCIC 09:49
PROVIDERS: Visit Provider Clinical Nurse Specialist
DX: O99.013 Anemia complicating pregnancy, third trimester (principal); D50.9 Iron deficiency anemia, unspecified
CPT/HCPCS: 96365; 96366; T1013; J1750; J7050

== ENCOUNTER 2024-12-23 18:32 | Outpatient (CLI) | payer MEDICAID, SELFPAY ==
[2024-12-23 18:43] VITALS: RESP 20; TEMP 36.9
[2024-12-23 18:45] VITALS: PULSE 103; O2SAT 98
[2024-12-23 18:47] VITALS: BP 100/57; PULSE 83
[2024-12-23] MEDS: ACETAMINOPHEN 500 MG TABLET 1000 MG PO (20:11)
--- NOTE | 2024-12-23 23:16 | PC.OBNST ---
NST Note NST Note Start: 12/23/24 18:43 Freq: ONCE Status: Active Protocol: Document 12/23/24 22:44 JOSEP (Rec: 12/23/24 23:16 JOSEP No Response) NST Note 2 Para (# of births) 1 EDC 02/05/25 Gestational Age In 33 Weeks & 5 Days Weeks & Days Patient Presented Observation after an injury,Pain with Complaint(s) of If Observation after Fall at 1400 an injury, describe If Pain, describe Pelvic location Reactive Yes Appropriate for Yes Gestational Age BROOKE Jay, RNC Date 12/23/24 Reactive Yes Appropriate for Yes Gestational Age BROOKE Park, RN Date 12/23/24 OB NST charge Yes Complete NST Note Yes via Write Note The provider's electronic signature indicates the NST is reactive/appropriate for gestational age. *Note to provider: If an addendum is required, open the patient's chart and click on the note under the Nurse/Allied Health tab.
== END 2024-12-23 22:52 | disposition home or self-care (01) ==
LOC: OB OUT 18:32 → OB 18:33
PROVIDERS: Visit Provider Midwife
DX: O26.893 Other specified pregnancy related conditions, third trimester (principal); S29.9XXA Unspecified injury of thorax, initial encounter; W19.XXXA Unspecified fall, initial encounter; Y93.9 Activity, unspecified; Y92.9 Unspecified place or not applicable; Z3A.33 33 weeks gestation of pregnancy
CPT/HCPCS: 59025; 81003; G0463; A9270

== ENCOUNTER 2024-12-26 11:33 | Outpatient (CLI) | payer MEDICAID, SELFPAY | END 2024-12-26 11:34 | disposition home or self-care (01) | LOC: NFLDREF 12-28 08:39 | PROVIDERS: Visit Provider Advanced Practice Midwife | DX: R53.83 Other fatigue (principal); Z34.93 Encounter for supervision of normal pregnancy, unspecified, third trimester | CPT/HCPCS: 82728 ==

== ENCOUNTER 2025-01-03 10:00 | Outpatient (RCR) | payer MEDICAID, SELFPAY | END 2025-05-03 23:59 | disposition home or self-care (01) | PROVIDERS: Visit Provider Advanced Practice Midwife | DX: M25.552 Pain in left hip (principal); O26.893 Other specified pregnancy related conditions, third trimester; R10.20 Pelvic and perineal pain unspecified side; M54.50 Low back pain, unspecified; R53.1 Weakness; Z51.89 Encounter for other specified aftercare | CPT/HCPCS: 97110; 97140; 97162; 97535; T1013 ==

== ENCOUNTER 2025-01-04 18:38 | Outpatient (CLI) | payer MEDICAID, SELFPAY ==
--- OUTSIDE RECORDS SUMMARY | 2025-01-04 18:13 | XMS_ITS ---
Author Organization [facility] Source Produ ction (ClinicalSummary Clone) Address Unknown Care Team Providers Care Product Development Worker Name Role Phone Unavailable Primary Care Physician Unavailab le Results * [UNITY] ANEUPLOIDY NIPT Performed by: [employer] Value Range Date Fraction 33.1% 08/07/2024 07 :36 am UT Sex Chromosome Aneuploidy NOT DETECTED 07:36 am UT Monosomy X LOW RISK <1 in 10,000 2024 07:36 am UT Trisomy 13 LOW RISK <1 in 10,000 2024 07:36 am UT Trisomy 18 LOW RISK <1 in 10,000 2024 07:36 am UT Trisomy 21 LOW RISK <1 in 10,000 2024 07:36 am UT Sex MALE 08/07/2024 07:3 6 am UT Gestation MARQUEZ 08/07/19 07:36 am UT For detailed report, see PDF See PDF 08/07/2024 07:36 am UTC 08/07/2024 07:3 6 am [facility] Social History Observation Value Start Date End Date
[2025-01-04 18:17] VITALS: BP 103/68; PULSE 103; RESP 16; TEMP 36.8; O2SAT 97; BMI 29.2
--- NOTE | 2025-01-04 21:56 | PC.OBNST ---
NST Note NST Note Start: 01/04/25 18:39 Freq: ONCE Status: Discharge Protocol: Document 01/04/25 20:00 ANAHI (Rec: 01/04/25 21:55 ANAHI Garcia) NST Note 2 Para (# of births) 1 EDC 02/05/25 Gestational Age In 35 Weeks & 3 Days Weeks & Days Patient Presented Contractions/cramping,Other with Complaint(s) of Other Complaints Constipation Reactive Yes Appropriate for Yes Gestational Age RN Pretty Phillips RN Date 01/04/25 Reactive Yes Appropriate for Yes Gestational Age BROOKE Tejada RN Date 01/04/25 OB NST charge Yes Complete NST Note Yes via Write Note The provider's electronic signature indicates the NST is reactive/appropriate for gestational age. *Note to provider: If an addendum is required, open the patient's chart and click on the note under the Nurse/Allied Health tab.
== END 2025-01-04 20:05 | disposition home or self-care (01) ==
LOC: OB OUT 18:38 → OB 18:38
PROVIDERS: Visit Provider Midwife
DX: O47.03 False labor before 37 completed weeks of gestation, third trimester (principal); Z3A.35 35 weeks gestation of pregnancy
CPT/HCPCS: 59025; G0463

== ENCOUNTER 2025-01-09 11:04 | Outpatient (CLI) | payer MEDICAID, SELFPAY ==
[2025-01-10 18:49] LABS: Strep B DNA Probe Negative (Negative)
[2025-01-11 15:25] LABS: Strep B Susceptibility Needed? No
== END 2025-01-09 11:05 | disposition home or self-care (01) ==
LOC: NFLDREF 11:06
PROVIDERS: Visit Provider Advanced Practice Midwife
DX: Z34.83 Encounter for supervision of other normal pregnancy, third trimester (principal)
CPT/HCPCS: 87081; 87653

== ENCOUNTER 2025-01-15 11:37 | Outpatient (CLI) | payer MEDICAID, SELFPAY ==
[2025-01-15 11:55] VITALS: BP 107/65; PULSE 85
[2025-01-15] MEDS: METOCLOPRAMIDE 10 MG TABLET PO (12:41)
[2025-01-15 13:17] VITALS: BP 101/69; PULSE 80
[2025-01-15 13:32] VITALS: BP 113/66; PULSE 74
[2025-01-15 13:36] LABS: Appearance Urine Clear (Clear)
[2025-01-15 13:47] VITALS: BP 105/60; PULSE 71
[2025-01-15 14:34] LABS: Hematocrit 32.7 % (33.0-51.0); Hemoglobin* 10.9 gm/dL (12.0-16.0); Mean Corpuscular HGB Conc 33 gm/dL (32-36); Mean Corpuscular Hemoglobin 29 pg (26-34); Mean Corpuscular Volume 87 fL (80-100); Red Blood Count 3.76 m/uL (4.00-5.20); White Blood Count* 5.97 K/uL (4.50-11.00)
[2025-01-15 14:40] LABS: Slide Review Reflex No
[2025-01-15 14:52] LABS: Alanine Aminotransferase* 13 U/L (4-35); Aspartate Amino Transferase* 26 U/L (12-35); Blood Urea Nitrogen* 7 mg/dL (5-24); Creatinine* 0.4 mg/dL (0.5-1.5); Estimated Glomerular Filt Rate 143 ml/min
[2025-01-15 15:52] LABS: Protein Creatinine Ratio Urine 0.22 (0-0.19)
--- NOTE | 2025-01-15 17:25 | PC.OBNST ---
NST Note NST Note Start: 01/15/25 11:54 Freq: ONCE Status: Active Protocol: Document 01/15/25 16:04 WK (Rec: 01/15/25 17:24 WK No Response) NST Note 2 Para (# of births) 1 EDC 02/05/25 Gestational Age In 37 Weeks & 0 Days Weeks & Days Patient Presented Decreased movement,Headache with Complaint(s) of Reactive Yes RN Wklotter RNC Reactive Yes RN PThompson RN OB NST charge Yes Complete NST Note Yes via Write Note The provider's electronic signature indicates the NST is reactive/appropriate for gestational age. *Note to provider: If an addendum is required, open the patient's chart and click on the note under the Nurse/Allied Health tab.
== END 2025-01-15 16:30 | disposition home or self-care (01) ==
LOC: OB OUT 11:38 → OB 11:48
PROVIDERS: Visit Provider Advanced Practice Midwife
DX: O36.8130 Decreased fetal movements, third trimester, not applicable or unspecified (principal); Z3A.37 37 weeks gestation of pregnancy
CPT/HCPCS: 36415; 59025; 81001; 81003; 82565; 82570; 84156; 84450; 84460; 84520; 85027; 87086; G0463; A9270

== ENCOUNTER 2025-01-29 16:56 | Outpatient (CLI) | payer MEDICAID, SELFPAY ==
[2025-01-29 17:14] VITALS: BP 112/73; PULSE 95; PULSE 99; O2SAT 98
[2025-01-29 17:15] VITALS: RESP 17; TEMP 36.6
--- NOTE | 2025-01-29 18:19 | PC.OBNST ---
NST Note NST Note Start: 01/29/25 17:24 Freq: ONCE Status: Active Protocol: Document 01/29/25 17:24 [facility] (Rec: 01/29/25 18:19 [facility] No Response) NST Note 2 Para (# of births) 1 EDC 02/05/25 Gestational Age In 39 Weeks & 0 Days Weeks & Days Patient Presented Contractions/cramping with Complaint(s) of Reactive Yes Appropriate for Yes Gestational Age RN Case RN Date 01/29/25 Reactive Yes Appropriate for Yes Gestational Age RN Biran RN Date 01/29/25 OB NST charge Yes Complete NST Note Yes via Write Note The provider's electronic signature indicates the NST is reactive/appropriate for gestational age. *Note to provider: If an addendum is required, open the patient's chart and click on the note under the Nurse/Allied Health tab.
== END 2025-01-29 18:15 | disposition home or self-care (01) ==
LOC: OB OUT 16:58 → OB 17:00
PROVIDERS: PCP Advanced Practice Midwife; Visit Provider Advanced Practice Midwife
DX: O47.1 False labor at or after 37 completed weeks of gestation (principal); Z3A.39 39 weeks gestation of pregnancy
CPT/HCPCS: 59025; G0463

== ENCOUNTER 2025-01-31 07:33 | Inpatient (IN) | payer MEDICAID, SELFPAY ==
[2025-01-31] VITALS (27 sets, daily range): BP systolic 92–190; BP diastolic 55–97; PULSE 67–237; RESP 16; TEMP 36.4–37.1; O2SAT 81–100; BMI 30.4
[2025-01-31 08:58] LABS: Hematocrit 35.4 % (33.0-51.0); Hemoglobin* 11.8 gm/dL (12.0-16.0); Immature Granulocytes Abs Auto 0.01 K/uL (0.00-0.30); Immature Granulocytes Pct Auto 0.2 %; Lymphocytes Absolute Auto 1.28 K/uL (0.90-2.90); Mean Corpuscular HGB Conc 33 gm/dL (32-36); Mean Corpuscular Hemoglobin 29 pg (26-34); Mean Corpuscular Volume 87 fL (80-100); RDW Coefficient of Variation % 21.3 % (11.5-15.5); Red Blood Count 4.05 m/uL (4.00-5.20); Slide Review Reflex No; White Blood Count* 4.82 K/uL (4.50-11.00)
[2025-01-31] MEDS: OXYTOCIN 30 unit/500 ML in NS 30 UNIT/500 ML BAG IVPB (09:09)
[2025-01-31] MEDS: LACTATED RINGERS 1000 ML 1,000 ML 123 ML IV (09:09)
--- NOTE | 2025-01-31 09:24 | W.PM.LDBA ---
Subjective History of Present Illness Time Seen by Provider: 08:30 Date Seen: 01/31/25 Narrative: Patient is being admitted to Labor and Delivery for elective induction of labor. She is a 24 year old at 39w2d gestation. Her full history and physical was dictated by Jory Mitchell CNM on 02/16/25. Discussed options for induction including cytotec, pitocin, AROM, membrane sweep. After cervical check patient opted for pitocin with likely rupture of membranes later. Specific Issues/Plans G 2 P 1001 Armenian-speaking H&P 01/16/25 Jessica Mitchell CNM Desires elective IOL 01/31 # Anemia at NOB Hgb:10.5. Low MCV, low ferritin = Iron deficiency anemia. Recommend every other day iron supplement. Recheck at 28 weeks 8.5, IV iron infusion x 1 Hgb at 34 weeks: 10.8 # Subserosal posterior fibroid measuring 3.0 x 2.8 x 3.0 cm # History of anxiety and depression in her chart. Some PP per her report-not medicated. Currently stable. # Desires PP tubal- Bilateral salpingectomy Consult completed 11/28/24 Federal tubal consent signed 11/28/24 Flu: given 07/03/24 Covid: Not vaccinated. Recommended. Declined. Mallory: low risk Tdap: given 11/28/24 Pap due in 2026 OB - Problem Based A/P Additional Plan (1) Elective induction of labor planned: Status: Acute (2) tubal ligation planned: Status: Acute (3) Anemia: Status: Acute (4) Fibroid uterus: Status: Acute (5) Left hip pain: Problem details: referral to PT Status: Acute (6) Armenian speaking patient: Problem details: Needs american sign language interpreter Status: Chronic (7) Major depressive disorder: Problem details: resolved Status: Resolved (8) Severe anxiety: Problem details: resolved, not on any medications Status: Resolved Plan ASSESSMENT:? at 39w2d gestation? GBS negative? complicated by:?anemia, fibroid Labor type: induction of labor Blood type:?O+ ?? PLAN:? 1. Reviewed risks and benefits of IOL with pitocin vs cytotec vs AROM. Also offered another membrane sweep. Prefers pitocin and AROM later. 3. Candidate for analgesia of choice. Likely unmedicated but will see how she feels.? 4. Anticipate ? 5. Expectant management at this time.? 6. IV placement for Pitocin titration and continuous monitoring while on pitocin ? Delivery/Labor/Induction Plan Plan: induction Induction method: per pitocin protocol OB Result Labs Blood Type: O (+) positive Rubella: immune RPR/VDLR: nonreactive GBS Status: negative HBsAG: negative OB Exam Physical Exam Vital signs: Temp Pulse Resp BP Pulse Ox 98.1 F 84 16 111/72 98 01/31/25 09:08 01/31/25 09:07 01/31/25 09:08 01/31/25 09:07 01/31/25 07:49 Narrative: Psychiatric:? Alert and oriented x3? HEENT:? Normocephalic, atraumatic? Neck:? Supple without adenopathy or thyromegaly? Lungs:? Breathing without difficulty ? Heart:? Regular rate and rhythm, no murmur, rub or gallop? Abdomen:? Soft, nontender, and gravid? Extremities:? No edema or erythema? Detailed Labor and Delivery Exam Patient Gravid: yes Dilation (cm): 2 Effacement (%): 70 Cervix position: mid (right sided) Consistency: medium Contraction Frequency: occasional mild Tachysystole: No Fetus (Single) Station: -2 Amniotic Membrane Status: intact Heart Rate Baseline: 130 Monitor Accelerations: Present Monitor Decelerations: None Composite Bond Technician Variability: Moderate (6-25)
--- NOTE | 2025-01-31 12:56 | PM.OBPNL ---
Subjective Time Seen by Provider: 12:30 Date Seen: 01/31/25 Objective Exam: On labor ball. Feeling contractions and tolerating well. Partner, RN, and sprinkling system installer present. Up to void with no problems. Reviewed risks/benefits of AROM and would to proceed for labor augmentation. Vital Signs: Last Vital Signs Temp 97.6 F 01/31/25 12:45 Pulse 68 01/31/25 12:45 Resp 16 01/31/25 12:45 BP 92/55 L 01/31/25 12:45 Pulse Ox 81 L 01/31/25 12:20 Pelvic Exam Dilation (cm): 4 Effacement (%): 70 Station: -2 Contractions Monitor mode: External Contraction Frequency: 2-4 min. Contraction pattern: Regular Contraction intensity: Moderate Pitocin Rate (mU/min): 9 Assessment Assessment: early labor Station: -2 Amniotic Membrane Status: AROM Status: Category l Heart Rate Baseline: 125 Correction Variability: Moderate (6-25) Monitor Accelerations: Present Monitor Decelerations: None Plan Plan: ASSESSMENT:? at 39w2d gestation? GBS negative? complicated by:?anemia, subserosal posterior fibroid Labor type: induction of labor Blood type:?O+ ?? PLAN:? 1. AROM at 1240. clear fluid 3. Candidate for analgesia of choice. Likely unmedicated but will see how she feels.? 4. Anticipate ? 5. Expectant management at this time.? 6. IV in place and continuous monitoring while on pitocin I, Jory Mitchell APRN, CNM, was present for visit and have reviewed and agree with documentation by the Certified Nurse Midwifery Student.?
--- NOTE | 2025-01-31 14:52 | PM.OBPNL ---
Subjective Time Seen by Provider: 13:45 Date Seen: 01/31/25 Narrative: RN updated that contractions are getting stronger and patient is feeling pressure. Were seeing early decelarations on monitoring as well. Went to check on status. Objective Exam: Standing and walking around room. Coping well. Able to talk inbetween contractions but stops to breathe when they start. Palpating moderate. Vital Signs: Last Vital Signs Temp 98.2 F 01/31/25 14:38 Pulse 67 01/31/25 14:38 Resp 16 01/31/25 14:38 BP 114/72 01/31/25 14:38 Pulse Ox 97 01/31/25 14:03 Pelvic Exam Dilation (cm): 5 Effacement (%): 80 Station: -1 Contractions Monitor mode: External Contraction pattern: Regular Contraction intensity: Moderate Pitocin Rate (mU/min): 9 Assessment Station: -2 Amniotic Membrane Status: AROM Status: Category l Heart Rate Baseline: 125 Monitor Accelerations: Present Monitor Decelerations: None Plan Plan: ASSESSMENT:? at 39w2d gestation? GBS negative? complicated by:?anemia, hip pain Labor type: induction of labor Blood type:?O+ ?? PLAN:? 1. labor progressing, continue plan of care 2. Candidate for analgesia of choice. Likely unmedicated but will see how she feels.? 3. Anticipate ? 4. Expectant management at this time.? 5. IV and continuous monitoring while on pitocin
[2025-01-31] MEDS: SODIUM CHLORIDE 0.9 % (FLUSH) 10 ML SYRINGE IVF (16:26)
[2025-01-31] MEDS: lidocaine HCL 2 % JELLY (TOP) STERILE 6 ML TOPICAL (17:45)
--- NOTE | 2025-01-31 18:23 | W.PM.OBVAGDE ---
OB Procedure Vag Delivery Mother Details Mother Details: The patient is a 24 year-old, 2, Para 1, admitted on 01/31/25 at 39.2 Days gestation. : 2 Para: 2 Weeks Gestation: 39.2 Admission Date: 01/31/25 Additional Details Amniotic Membrane Status: AROM Amniotic Membrane Rupture Date: 01/31/25 Amniotic Membrane Rupture Time: 12:35 Amniotic Membrane Fluid Description: Clear Analgesia/Anesthesia Type: Fentanyl and Nitrous Oxide Waterbirth: No Pitcoin: Yes Intrapartal Events: Labor Induction Induction Method: per pitocin protocol Delivery augmentation: rupture of membranes Labor Onset: 15:04 Complete: 16:53 Pushin:54 Heart: heart tones during second stage were category 2. Variable decelerations with some pushed. Good return to baseline after the contraction. Delivery Details Delivery Date: 01/31/25 Delivery Time: 17:27 Route of delivery: Infant Gender: Male Infant Viability: Alive; Heart Rate Present Position at Delivery: OA Delivery Details: Patient was admitted for elective IOL with Pitocin titration and progressed AROM with augmentation. AROM noted at 1235 with clear fluid. Around 1630 Julissa was requesting Fentanyl after the nitrous was not giving her enough relief. Reviewed the risks of giving it at this stage in labor. She is agreeable to the risks. At was almost 1 hour from administration to delivery. Patient was complete at 1653 and pushing at 1654. of a viable male at 1727 in let tilt. Vertex delivered OA. No nuchal cord or shoulder. Body delivered easily and without incident but did not fully rotate and delivered OT. passed to mothers abdomen with a vigorous cry. Cord was clamped and cut at > 5 minutes. APGARS were 8 at one minute and 9 at five minutes respectively. Mouth was bulb suctioned. Intact placenta with a 3 vessel cord delivered spontaneously at 1737. Fundus firm. 2nd degree identified and repaired in typical fashion. QBL 275 cc. Mother and baby stable; mother plans to breastfeed. Infant weight pending. Delivery done with SANDRA Morgan. 1 Minute Interval Total Score: 8 5 Minute Interval Total Score: 9 Additional Details Shoulder Dystocia: No Placenta Delivery Time: 17:37 Placental Delivery Description: Spontaneous Delivery repair: Vicryl Procedure Done: Global Blood Loss: 275 Laceration: Perineal - 2nd Degree Episiotomy Description: None Blood Loss Measurement Type: QBL Bakri Used: No Sponge/Need Count Correct: Yes Cord Vessel Description: 3 Vessels Event Summary Status: Mother and were stable after delivery. Disposition: floor
[2025-01-31] MEDS: IBUPROFEN 600 MG TABLET PO (18:43)
--- NOTE | 2025-01-31 23:29 | PC.NURSE ---
Pt's partner told pt that she had some red quinn on her face that pt was unaware of. Noted on red unraised circular areas on left side of face and neck. Pt reports they do not itch or bother her. She denies SOB or breathing problems. She reports some pain in both legs but declines pain meds at this time.
[2025-02-01] VITALS (20 sets, daily range): BP systolic 90–127; BP diastolic 53–81; PULSE 67–97; RESP 14–16; TEMP 36.1–36.8; O2SAT 94–99
[2025-02-01 07:08] LABS: Hemoglobin* 10.6 gm/dL (12.0-16.0)
[2025-02-01] MEDS: LACTATED RINGERS 1000 ML 1,000 ML 125 ML IV ×2 (07:32→10:29)
--- NOTE | 2025-02-01 08:44 | P.DS_ITS ---
DS: Providers Provider Date Seen: 02/01/25 Date of admission: 01/31/25 07:33 Primary care physician: Not a Local Provider Admitting Clinician: Jory Mitchell CNM Consults: 01/31/25 08:21 Consult to Television Presenter [CONS] Routine Comment: Reason for Consult:: Galley Cook Needed Attending Physician on discharge: Toribio RODRÍGUEZ Date of Discharge: 02/01/25 DS: Diagnosis Discharge Diagnosis (1) care and examination of lactating mother: Status: Acute (2) Second degree perineal laceration: Status: Acute (3) Status post tubal ligation: Status: Acute (4) English speaking patient: Status: Chronic Problem details: Needs jewel gauger Exam Narrative: Exam Narrative: GENERAL APPEARANCE:? normal affect, alert, no distress MOOD:? appropriate CHEST:? clear to auscultation HEART:? regular rate and rhythm ABDOMEN:? soft, non-tender the uterine fundus is At Umbilicus, Midline and is appropriate for the stage of recovery. PERINEUM:? mild edema of the perineum, there is a Perineal Laceration,? repair is well approximated with minimal edema, no erythema, well approximated. EXTREMITIES:? normal and minimal edema Const: Vital Signs, click to edit/add: Vital Signs - 24 hr 01/31/25 09:07 01/31/25 09:08 01/31/25 10:18 Temperature 98.1 F Pulse Rate 84 75 Pulse Rate [Pulse Oximeter] Respiratory Rate 16 Blood Pressure 111/72 122/67 Blood Pressure [Le ft Arm] Pulse Oximetry [facility] 01/31/25 11:17 01/31/25 11:17 01/31/25 11:17 Temperature Pulse Rate 91 83 Pulse Rate [Pulse Oximeter] Respiratory Rate Blood Pressure 190/97 H 103/64 Blood Pressure [Le ft Arm] Pulse Oximetry [facility] 01/31/25 12:17 01/31/25 12:17 01/31/25 12:20 Temperature 98 F Pulse Rate 73 Pulse Rate [Pulse Oximeter] Respiratory Rate 16 Blood Pressure 116/74 Blood Pressure [Le ft Arm] Pulse Oximetry 81 L Oxygen [facility] 01/31/25 12:20 01/31/25 12:45 01/31/25 12:45 Temperature 97.6 F Pulse Rate 68 Pulse Rate [Pulse Oximeter] Respiratory Rate 16 Blood Pressure 92/55 L Blood Pressure [Le ft Arm] Pulse Oximetry 81 L Oxygen Delivery Me thod 01/31/25 13:36 01/31/25 13:36 01/31/25 14:03 Temperature 97.9 F Pulse Rate 67 Pulse Rate [Pulse Oximeter] Respiratory Rate 16 Blood Pressure 97/55 L Blood Pressure [Le ft Arm] Pulse Oximetry 97 Oxygen Delivery Me thod 01/31/25 14:38 01/31/25 14:38 01/31/25 15:49 Temperature 98.2 F Pulse Rate 67 68 Pulse Rate [Pulse Oximeter] Respiratory Rate 16 Blood Pressure 114/72 117/72 Blood Pressure [Le ft Arm] Pulse Oximetry Oxygen Delivery Il thod 01/31/25 16:13 01/31/25 16:59 01/31/25 16:59 Temperature 97.9 F Pulse Rate 68 Pulse Rate [Pulse Oximeter] Respiratory Rate 16 Blood Pressure 125/70 Blood Pressure [Le ft Arm] Pulse Oximetry 100 Oxygen Delivery Il thod 01/31/25 17:39 01/31/25 17:53 01/31/25 17:53 Temperature 98 F Pulse Rate 87 86 Pulse Rate [Pulse Oximeter] Respiratory Rate 16 Blood Pressure 116/65 115/69 Blood Pressure [Le ft Arm] Pulse Oximetry Oxygen Delivery Il thod 01/31/25 17:54 01/31/25 18:08 01/31/25 18:23 Temperature 98.6 F Pulse Rate 82 99 Pulse Rate [Pulse Oximeter] Respiratory Rate 16 Blood Pressure 115/69 107/68 Blood Pressure [Le ft Arm] Pulse Oximetry Oxygen Delivery Il thod 01/31/25 18:38 01/31/25 18:53 01/31/25 19:08 Temperature Pulse Rate 67 93 83 Pulse Rate [Pulse Oximeter] Respiratory Rate Blood Pressure 103/63 101/66 104/65 Blood Pressure [Le ft Arm] Pulse Oximetry Oxygen Delivery Il thod 01/31/25 19:23 01/31/25 19:38 01/31/25 19:53 Temperature Pulse Rate 88 92 86 Pulse Rate [Pulse Oximeter] Respiratory Rate Blood Pressure 103/62 99/59 L 104/60 Blood Pressure [Le ft Arm] Pulse Oximetry Oxygen Delivery Il thod 01/31/25 23:40 02/01/25 04:00 02/01/25 07:30 Temperature 98.8 F 98.3 F 98.0 F Pulse Rate Pulse Rate [Pulse Oximeter] 86 74 91 Respiratory Rate 16 16 16 Blood Pressure Blood Pressure [Le ft Arm] 99/56 L 104/69 105/70 Pulse Oximetry 96 97 97 Oxygen Delivery Me thod Room Air Room Air Room Air OB - DS: Summary Hospital Course Hospital Course: Julissa is a 24 y.o. G 2 P 2001 who was admitted to L & D for elective IOL.? She had a NVD that was uncomplicated. The patient feels well.? The pain is well controlled with current medications.? She has no new complaints.? She is breast feeding and reports things are going ok, but needs more assistance with latching. the patient has done well.? Vitals have been stable.? She has remained afebrile.? Has a good appetite, is tolerating a general diet.? She is voiding without difficulty.? She is not yet passing gas and has not had a bowel movement.? She is ambulating and denies any dizziness.? Has small amount of rubra lochia. She is having a tubal ligation today and plans to go home assuming all goes to plan.? ?? Problems: none, S/P tubal ligation? ?? plan:? Discharge home with baby.? Follow up in 2 weeks and 6 weeks.? , may see if needed? Hgb 10.6. Iron supplement ordered orally every other day?to be continued for 2 weeks Small RX for oxycodone sent for pain control post tubal Labs WNL or stable with trending? ? ? Call for signs/symptoms of preeclampsia? Peripartum Data Infant delivery method: Vaginal Laceration description: Perineal - 2nd Degree Episiotomy description: None Procedures: Procedures Operation Date: 03/15/25 09:00 <No data on this case meets the specified criteria> Procedures: tubal ligation/salpingectomy complications: none Gender: Male Infant Discharge Plan: Home Status at Discharge Overall status at discharge: patient is progressing back to baseline Time Spent with Patient Time attestation: Total time spent providing and/or coordinating discharge services: Time spent: Less than 30 minutes Discharge Plan Discharge Disposition: Home, Self-Care Date of Admission: 01/31/25 07:33 Attending Provider on Discharge: Kristi Bishop Primary Care Provider: Provider,Not a Local Condition: Stable Anticipated Discharge Date/Time: 02/01/25 20:00 Discharge Medications: New oxycodone 5 mg tablet 5 mg PO Q8H PRN (Reason: pain) Qty: 10 0RF Continued DHA 200 mg capsule 200 mg PO DAILY magnesium citrate 125 mg capsule 250 mg PO QDAY Vitron-C 65 mg iron- 125 mg tablet,delayed release (DR/EC) 1 tab PO QDAY docusate sodium 100 mg capsule 100 mg PO BID Qty: 60 3RF ferrous sulfate 325 mg (65 mg iron) tablet 325 mg PO Q OTHER DAY Qty: 90 1RF Discharge Orders: Discharge Order (Routine); Ordered 02/01/25 Ordered By: Kristi Bishop Patient Education: OB Over the Counter Medication Information, OB Vaginal/Breast Feeding Additional Instructions: Discharge instructions were reviewed with the patient including signs and symptoms of infection and home going medications Nothing vaginally for 6 weeks: no tampons or intercourse Do not drive while taking narcotic pain medication(s) Off Work or School for 6 weeks Symptoms to report to doctor: * Bleeding that saturates more than one pad per hour * Passing clots larger than the size of a golf ball * Pain not relieved by prescribed medication * Fever above 100.4 degrees Fahrenheit * A foul vaginal odor * Difficulty in emotions, mood, and functions * Thoughts of hurting yourself and/or * Painful, reddened area in your breast * Any drainage, redness, or tenderness in your IV/epidural site * Severe headache that doesn't improve after taking medications * Changes in vision, including temporary loss of vision, blurred vision, and/or light sensitivity * Upper abdominal pain (usually under ribs on the right side) * Decrease in urination or painful, frequent urinating * Chest pain * Shortness of breath * Tenderness or pain with redness and/swelling in the calf(s) of your leg 2-week visit: discuss infant feeding concerns, review control options and screen for anxiety/depression. 6-week visit for an annual exam. consultation services are available to all mothers and babies for the first year after delivery.? To make an appointment, please call [phone]. Activity Level: Activity as Tolerated and No strenuous activity Discharge Diet: Regular Follow Up Appointments: [facility] [Provider Group] Forms: Patient Belongings, MyHealth Info Instructions
--- NOTE | 2025-02-01 08:44 | W.PM.H&PU ---
History & Physical Update History & Physical Update H&P Updates: Julissa is a 24yo seen prior to planned bilateral salpingectomy. She is s/p uncomplicated yesterday with CNM service. was complicated by anemia, subserosal fibroid and history of depression. Patient has expressed a desire for permanent sterilization throughout this . She is status post consultation, with Federal sterilization consent signing on 11/28/[address] Patel. Please see this note for complete details. I presented to the bedside this morning alongside in-person data warehousing manager (Rachel). Julissa affirm she is feeling well since her delivery. Vital signs reviewed and are within normal limits, and hemoglobin reassuring. I again reviewed the permanent nature of sterilization and the procedure of a bilateral salpingectomy (versus tubal ligation) in detail. Explained risk of regret, where she has been extensively counseled in this regard previously and understands the procedure is not reversible and the only way to conceive after would be IVF. She affirms desire to proceed. We then discussed surgical risks of bleeding, infection, damage to surrounding structures (uterus, tubes, ovaries, bowel, bladder, blood vessels) and the rare chance of unplanned after sterilization. Written consent was signed by patient, myself and casting and locker room servicer. Patient expressed a desire to avoid spinal, has requested general anesthesia for the procedure. Will defer this decision ultimately to patient and COMMUNICATIONS SUPERVISOR. She has been NPO for 8 hours. Plan 2g Ancef as surgical prophylaxis. Discussed postoperative restrictions and expectations. Plan dismissal to home this evening versus tomorrow morning pending her surgical and routine course.
[2025-02-01] MEDS: BUPIVACAINE 0.25 %/EPI 1:200K 30 ml INJECTION (09:22)
--- NOTE | 2025-02-01 10:05 | P.ANES_ITS ---
Anesthesia Charges Start Date/Time Anesthesia Start Date: 02/01/25 Anesthesia Start Time: 08:52 Stop Date/Time Anesthesia Stop Date: 02/01/25 Anesthesia Stop Time: 09:54 Coding CPT Codes CPT Codes: ANESTH SURG LOWER ABDOMEN - 12761 ([id number]) P1 - NORMAL HEALTHY PATIENT, QZ - NUT GRINDER SVC W/O FRUIT BAR MAKER BY
--- NOTE | 2025-02-01 10:05 | W.ANESCHARGE ---
Anesthesia Charges Start Date/Time Anesthesia Start Date: 02/01/25 Anesthesia Start Time: 08:52 Stop Date/Time Anesthesia Stop Date: 02/01/25 Anesthesia Stop Time: 09:54 Coding CPT Codes CPT Codes: ANESTH SURG LOWER ABDOMEN - 95542 ([id number]) P1 - NORMAL HEALTHY PATIENT, QZ - PATHOLOGY SPECIALIST SVC W/O CONTROL ROOM HELPER BY
--- NOTE | 2025-02-01 10:21 | W.PM.GYNPROC ---
Procedure Note Time Seen by Provider: 09:45 Date of procedure: 02/01/25 Will [facility] bill your pro fee for this procedure?: Yes Pre-op diagnosis: Undesired fertility s/p uncomplicated Procedure: bilateral salpingectomy Anesthesia: GETA Complications: None Surgeon: Farideh Carroll MD Estimated blood loss (mL): 5 IV fluids (mL): 1,000 Pathology: specimen obtained, sent to pathology Condition: stable Disposition: floor Findings: Unremarkable bilateral fallopian tubes Procedure Description: Patient was taken to the operating room with IV running. She was positioned supine. General anesthesia was administered. She was prepped and draped in the usual sterile fashion. A surgical time out was held to confirm patient and procedure. A 3cm infraumbilical horizontal incision was made with a scalpel and carried down to the underlying layer of fascia with the hemostat. The fascia was grasped with Norma clamps and elevated, fascial incision made with scalpel. A curved hemostat was utilized to enter peritoneum and gently stretch fascial incision. The mini hilda retractor was introduced in the peritoneal cavity and tightened for retraction. Careful attention was paid below site of entry - no injury or bleeding noted. The gravid uterus could be seen immediately below incision. The uterus was displaced manually, where the right fallopian tube was identified and elevated with Babcocks. The right fallopian tube was sequentially ligated and transected from the mesosalpinx using the Ligasure cautery device. We proceeded from the fimbriated end, lateral to medial, and the tube was amputated at the right uterine cornua. Specimen was removed from the field. Excellent hemostasis noted. The uterus was manually displaced, where left fallopian tube was identified and grasped with Babcocks. The same procedure was repeated on the patient's left side, and the left fallopian tube was also amputated at the cornua and removed from the patient's abdomen. Both fallopian tubes were sent for pathologic evaluation. Survey of the pelvis revealed excellent hemostasis. Procedure was deemed complete. The fascia was closed in a running fashion with 0 Vicryl. Local anesthetic (Marcaine) with epi was infiltrated in the subcutaneous tissue, total 10cc. Subcutaneous tissue closed with 3-0 vicryl in a running fashion. The skin was closed in a subcuticular fashion with 3-0 Monocryl. Surgical glue was applied above this. Patient tolerated procedure well and was taken to recovery area in stable condition. EBL 5 mL, IVF 1000 mL. Confirmed specimens sent to pathology.
[2025-02-01] MEDS: ACETAMINOPHEN 500 MG TABLET 1000 MG PO (10:28)
[2025-02-01] MEDS: DOCUSATE SODIUM 100 MG CAPSULE PO (12:34)
[2025-02-01] MEDS: IBUPROFEN 600 MG TABLET PO (12:34)
[2025-02-01] MEDS: SIMETHICONE 80 MG TAB.CHEW PO (14:43)
== END 2025-02-01 19:05 | disposition home or self-care (01) | DRG 798 ==
PROVIDERS: Obstetrics & Gynecology; Admitting Provider Advanced Practice Midwife; Visit Provider Advanced Practice Midwife
PROC: 0UT70ZZ Resection of Bilateral Fallopian Tubes, Open Approach (ICD-10-PCS; CPT 58605; principal; 2025-02-01 09:00)
DX: O99.02 Anemia complicating childbirth (principal); Z37.0 Single live birth; D50.9 Iron deficiency anemia, unspecified; O70.1 Second degree perineal laceration during delivery; O34.13 Maternal care for benign tumor of corpus uteri, third trimester; D25.2 Subserosal leiomyoma of uterus; Z86.59 Personal history of other mental and behavioral disorders; M25.552 Pain in left hip; Z71.0 Person encountering health services to consult on behalf of another person; Z60.3 Acculturation difficulty; Z30.2 Encounter for sterilization; Z3A.39 39 weeks gestation of pregnancy
CPT/HCPCS: 00840; 36415; 85018; 85025; 86592; 86850; 86900; 86901; 88302; T1013; A9270; J0690; J1100; J1885; J2003; J2250; J2405; J2704; J2710; J3010; J7120

== ENCOUNTER 2025-02-05 14:08 | Outpatient (CLI) | payer MEDICAID, SELFPAY ==
--- NOTE | 2025-02-05 15:39 | W.PM.LAC.MC ---
Consult Note - Mom Date of Visit Date of visit: 02/05/25 Reason for consultation: Assistance Needed, Breast/Nipple Issue (pain with latching and some with pumping) and Other (visit with assistance of Jeanne with [employer]) Visit Code: Visit Patient's Information Phone number: [phone] : 2 Para: 2 Allergies No Known Allergies Allergy (Verified 01/31/25 09:20) Mother's Medical History: Medical History (Updated 02/01/25 @ 08:57 by Kristi Bishop CNM) Left hip pain ?M25.552 - Pain in left hip (ICD-10) Iron deficiency anemia ?D50.9 - Iron deficiency anemia, unspecified (ICD-10) Encounter for IUD removal ?Z30.432 - Encounter for removal of intrauterine contraceptive device (ICD-10) Severe anxiety (03/2021) ?F41.9 - Anxiety disorder, unspecified (ICD-10) Posttraumatic stress disorder ?F43.10 - Post-traumatic stress disorder, unspecified (ICD-10) depression (06/2021) ?F53.0 - depression (ICD-10) Major depressive disorder ?F32.9 - Major depressive disorder, single episode, unspecified (ICD-10) Generalized anxiety disorder with panic attacks ?F41.1 - Generalized anxiety disorder (ICD-10) ?F41.0 - Panic disorder [episodic paroxysmal anxiety] (ICD-10) Delivery Information Delivery type: Vaginal Gestational Age: 39+2 Gestational Weight For Age: AGA Weight: 4.4 kg Discharge Weight: 4.274 kg Percentage weight loss: 2.9 Baby's Information Baby's Age at Visit: 5 days Baby's Provider or Clinic: [facility] Jaundice: No Past Experience Past Experience: Yes (x1 month and then lost her supply; was mainly pumping) Current Frequency of Day Feedings: every 3 hrs day and night Both Breasts: No Latch: not latching due to pain Pumping Pumping: Yes Quantity Pumped: 1-2 oz every 3 hrs; milk started coming in 2 days ago, more yesterday Supplementing EBM Supplement: Yes Formula Supplement: Yes Baby Elimination Number of Wet Diapers a Day: ea feeding Number of BM a Day: 1 yesterday and 1 so far today Breast/Nipple Condition Breast Information: Breasts are symmetrical with rounded lower quadrants, intramammary distance is less than 1.5 inches. No erythema. Nipples are supple, everted prior to feeding. Breast Shape: Round Engorgement: No Maternal Nipple Condition - Left: Common Nipple and Other (nipples red, slight bruise on tip of nipple) Maternal Nipple Condition - Right: Common Nipple and Other (nipple red and slight bruising ) Sore Nipples: Yes Interventions for Sore Nipples: Lansinoh/Nipple Cream Baby Assessment Skin: Normal Tongue/frenulum: Normal/elastic Palate: Average Lips: Relaxed and Symmetrical Jaw Alignment: Symmetrical Mucosa: [place], moist Onsite Observation Pre-Feed weight: 4.282 kg (baby just fed 1 hr ago so not sure if he'll feed here) Post-Feed weight: 4.308 kg Milk Transferred (mL): 26 Position: Cross cradle Attachment/latch-on achieved: Easily Suck pattern: Suck burst and normal rest Swallow: Audible, consistent Behavior following feed: Relaxed, sleepy Pre-Nursing Left Nipple: Redness Pre-Nursing Right Nipple: Redness Post-Nursing Left Nipple: Within Normal Limits Post-Nursing Right Nipple: Within Normal Limits Assessments/Interventions Assessments/Interventions: Mac latched to mom's LEFT breast, latched well with wide, deep latch and and stayed nursing for 10 minutes. Transferred 16 ml of milk Mac then latched to mom's RIGHT breast, latched easily and nursed for another 10 minutes and came off the breast Transferred 10 ml of milk. Mac needed gentle support to stay latched deeply. Worked with mom/taught asymmetrical latch technique for a wide, deep latch and mom reports increased comfort with this; helped her with latch to her left breast, she was able to do independently on her right side. Thinks she can replicate this at home; she states she was not waiting for him to get a wide enough mouth nor brining him to the breast as quickly as she did here. So he was mainly on her nipple and this was painful. Discussed normals of ; milk coming in, regulation of supply, use of pump to relieve fullness if needed. If pump to do a bottle feed, recommend pump for 15-20 minutes to build and maintain supply; Spectra pump settings reviewed Nipple care reviewed as well. Education provided: Early feeding cues to maximize timing of latching, Asymmetric latch technique for wide/deep latch to increase milk, Transfer for baby and increase comfort for mom, Supply/demand nature of milk supply, Need for frequent stimulation/milk removal, Sore nipple treatment options, Alternative feeding methods (SNS, cup, finger feeding, bottling) and Pumping for milk management Feeding Plan: Breastfeed for 15-20 min on each breast, listening for active swallowing Pump both breasts for a full 20 minutes if pumping instead of Feed baby 1-2oz of pumped milk and/or formula every 2-3 hours based on feeding cues Use a syringe/feeding tube, cup, or bottle for feedings based on preference Rest, and repeat every 2-3 hours, watch for early feeding cues Try skin to skin to increase milk production Follow-Up Suggested follow up: Appointment as needed Time Spent Time spent with patient (min): 60 Meds Home Medications and Allergies Home Medications ?Medication ?Instructions ?Recorded ?Confirmed ?Type docosahexaenoic acid 200 mg 200 mg PO DAILY 07/03/24 01/31/25 History capsule ( [facility]HA) magnesium citrate 125 mg capsule 250 mg PO QDAY 07/03/24 01/31/25 History ferrous sulfate 325 mg (65 mg 325 mg PO Q OTHER DAY #90 tabs 07/04/24 01/31/25 Rx iron) tablet docusate sodium 100 mg capsule 100 mg PO BID #60 caps 01/04/25 01/31/25 Rx iron,carbonyl 65 mg-vitamin C 125 1 tab PO QDAY 01/16/25 01/31/25 History mg tablet,delayed release (Vitron-C) oxycodone 5 mg tablet 5 mg PO Q8H PRN pain #10 tabs 02/01/25 Rx Allergies Allergy/AdvReac Type Severity Reaction Status Date / Time No Known Allergies Allergy Verified 01/31/25 09:20
== END 2025-02-05 14:09 | disposition home or self-care (01) ==
LOC: OB LAC 14:09
PROVIDERS: Visit Provider Obstetrics & Gynecology
DX: Z39.1 Encounter for care and examination of lactating mother (principal)
CPT/HCPCS: G0463; T1013

== ENCOUNTER 2025-03-14 11:32 | Outpatient (CLI) | payer MEDICAID, SELFPAY ==
[2025-03-18 17:48] LABS: Pap Test Digital Imaging Done
== END 2025-03-14 11:33 | disposition home or self-care (01) ==
LOC: NFLDREF 11:34
PROVIDERS: Visit Provider Physician Assistant
DX: Z12.4 Encounter for screening for malignant neoplasm of cervix (principal)
CPT/HCPCS: 87624; 87625; 88141; 88142; 88175